=== PATIENT | male | born 1985 | race Caucasian/White ===

== ENCOUNTER 2021-02-22 19:46 | Emergency (ER) | payer SELFPAY ==
--- NOTE | ~2021-02-22 | CT_ITS ---
EXAMINATION: CTA chest PE protocol DATE: 02/22/2021 22:10 INDICATION: Chest pain. Elevated d-dimer. TECHNIQUE: Computed tomography (CT) pulmonary angiogram of the chest was performed with 100 mL Omnipa que-350 intravenous contrast. Additional 3D reconstructions utilizing coronal maximum intensity proje ction (MIP) were performed. Automated exposure control and iterative reconstruction technique were em ployed. The dose-length product was 787.12 mGy-cm. COMPARISON: None FINDINGS: Excellent contrast opacification of the pulmonary arteries. There is mild streak artifact from dense contrast in the superior vena cava and right atrium. Minimal scattered respiratory motion artifact wh ich does not significantly limit evaluation. There are multiple bilateral pulmonary nodules measuring up to 1.5 cm scattered throughout both lungs which demonstrate irregular margins with groundglass joseph los which would favor an infectious or inflammatory etiology over metastatic disease. No pulmonary ed jose, pleural effusion or pneumothorax. Heart size is normal. No pericardial effusion. There is likely reactive mild bilateral hilar and mediastinal lymphadenopathy which is likely reactive. Thoracic aor ta is normal caliber with no dissection. Small sliding-type hiatal hernia. Visualized upper abdomen i s otherwise unremarkable. Chronic appearing mild anterior wedging at T12. There are multiple Schmorl' s nodes in the mid to lower thoracic spine. IMPRESSION: 1. No pulmonary embolus. 2. Multiple bilateral scattered pulmonary nodules with random distribution and surrounding groundglas s opacity differential would include infectious/inflammatory etiologies including septic emboli and a typical pneumonias, is infiltrate pneumonia, hypersensitivity pneumonitis, Rl's granulomatosis a nd metastatic disease. 3. Mild mediastinal and bilateral hilar lymphadenopathy most likely reactive although differential al so includes metastatic disease. Reviewed, dictated and finalized at location A. IMPRESSION: 1. No pulmonary embolus. 2. Multiple bilateral scattered pulmonary nodules with random distribution and surrounding groundglass opacity differential would include infectious/inflammat ory etiologies including septic emboli and atypical pneumonias, is infiltrate p neumonia, hypersensitivity pneumonitis, Rl's granulomatosis and metastatic disease. 3. Mild mediastinal and bilateral hilar lymphadenopathy most likely reactive al though differential also includes metastatic disease.
[2021-02-22 20:19] VITALS: BP 141/79; PULSE 118; RESP 20; TEMP 37.8; O2SAT 99
--- NOTE | 2021-02-22 20:20 | ECG_ITS ---
Measurements Intervals [place] Rate: 98 P: 71 WV: 137 QRS: 67 QRSD: 104 T: 6 QT: 314 QTc: 402 Interpretive Statements SINUS RHYTHM INCOMPLETE RIGHT BUNDLE BRANCH BLOCK BORDERLINE ST-T WAVE ABNORMALITY- INFERIOR LEADS BORDERLINE ECG Electronically Signed On 02-22-2021 20:49:27 CDT by Wilder Lu D.O.
--- NOTE | 2021-02-22 20:22 | ED.GENADULT ---
HPI - General Adult General Chief complaint: Dizziness Stated complaint: body pain Source: patient Mode of arrival: ambulatory Limitations: no limitations History of Present Illness HPI narrative: Marko is a 35M with a PMH of psoriatic arthritis, obesity and tobacco use that presented to the ED with multiple concerns. He started having body aches 3 days ago. They then progress to chest pain, SOB, fevers, chills, cough and fatigue as well as lightheadedness. He has not had any COVID exposure as far as he knows, but he has not been infected or vaccinated. No syncope. Related Data Home Medications Medication Instructions Recorded Confirmed No Home Medications 02/22/21 02/22/21 Allergies Allergy/AdvReac Type Severity Reaction Status Date / Time No Known Allergies Allergy Verified 02/22/21 20:39 Review of Systems Constitutional: Constitutional: Reports chills, Reports fatigue and Reports fever(s) Eyes: Eyes: Reports no additional eye complaints ENT: Reports system reviewed and no additional complaints, except as documented Cardiovascular: Cardiovascular: Reports chest pain and Reports rapid heart rate Respiratory: Respiratory: Reports as per HPI Gastrointestinal: Gastrointestinal: Reports constipation Genitourinary: Genitourinary: Denies hematuria and Denies dysuria Musculoskeletal: Musculoskeletal: Reports as per HPI Integumentary/Breasts: Skin/Breast: Reports system reviewed and no additional complaints, except as docu Psychiatric: Psychiatric: Reports no additional psychiatric complaints Endocrine: Endocrine: Reports no additional endocrine complaints Hematologic/Lymphatic: Hematologic/Lymphatic: Reports no additional hematologic/lymphatic complaints Allergic/Immunologic: Allergic/Immunologic: Reports no additional allergic/immunologic complaints [facility] Social History Social History Gender identity (if verbalized by the patient): Male Exam Const: General: alert Orientation/consciousness: patient oriented x3 Limitations: No altered mental status Other: In mild distress HENMT: Head: normal to inspection Other: atrauamtic Eyes: Pupils: Equal, round and reactive pupils present Neck: Neck: normal visual inspection Chest: Chest palpation & inspection: normal inspection of the chest Resp: Effort & Inspection: labored and tachypneic Auscultation: clear to auscultation bilaterally Cardio: Rate: tachycardic Rhythm: regular rhythm Heart sounds: no murmurs GI: Inspection: non-distended GI Palp: Yes Soft to palpation, No Tenderness to palpation present (GI) and No Guarding due to palpation present (GI) Back/Spine/Pelvis: Back: no CVA tenderness Skin: General skin exam: normal color Other: Skin was warm and sweaty Neuro: General: patient oriented x3, moves all extremities, no meningeal signs, no focal motor deficits and CN's II-XI intact bilaterally Speech: normal speech Extrem: General: normal to inspection Psych: Appearance: grossly normal Mental Status: mental status grossly normal Thought content: Yes Normal thought content present Course Course Emergency Course: Given toradol and fluids for the pain/headache. EKG showed sinus tachycardia at 98, normal axis, RBBB but no ST elevation/depression Labs were largely unremarkable. EXAMINATION: CTA chest PE protocol DATE: 02/22/2021 22:10 INDICATION: Chest pain. Elevated d-dimer. TECHNIQUE: Computed tomography (CT) pulmonary angiogram of the chest was performed with 100 mL Omnipaque-350 intravenous contrast. Additional 3D reconstructions utilizing coronal maximum intensity projection (MIP) were performed. Automated exposure control and iterative reconstruction technique were employed. The dose-length product was 787.12 mGy-cm. COMPARISON: None FINDINGS: Excellent contrast opacification of the pulmonary arteries. There is mild streak artifact from dense contrast i
[2021-02-22] MEDS: KETOROLAC 30 MG/ML VIAL (*BKC) IV PUSH (20:39)
[2021-02-22] MEDS: SODIUM CHLORIDE 0.9% IV 1,000 ML 999 ML IV CONT ×2 (20:39→23:32)
[2021-02-22 20:44] LABS: Basophils Absolute Auto 0.05 K/mm3 (0.00-0.10); Basophils Percent Auto 0.8 % (0.0-1.0); Eosinophils Absolute Auto 0.14 K/mm3 (0.02-0.50); Eosinophils Percent Auto 2.2 % (1.0-6.0); Hemoglobin 15.7 g/dL (14.0-18.0); Immature Granulocyte Absolute 0.03 K/mm3 (0.00-0.00); Immature Granulocyte Percent A 0.5 % (0.0-0.0); Lymphocytes Percent Auto 27.7 % (18.0-42.0); Mean Corpuscular HGB Conc 33.4 g/dL (32.0-36.0); Mean Corpuscular Hemoglobin 28.6 pg (27.0-31.0); Mean Corpuscular Volume 85.6 fL (78.0-102.0); Mean Platelet Volume 9.5 fl (8.7-11.0); Monocytes Absolute Auto 0.68 K/mm3 (0.10-0.90); Monocytes Percent Auto 10.5 % (2.0-11.0); Neutrophils Absolute Auto 3.8 K/mm3 (1.7-7.2); Neutrophils Percent Auto 58.3 % (50.0-70.0); Platelet Count Result 161 K/mm3 (150-420); Red Blood Count 5.49 M/mm3 (4.70-6.10); Red Cell Distribution Width 12.4 % (11.6-14.4); White Blood Count 6.5 K/mm3 (4.8-10.8)
[2021-02-22 20:58] LABS: Prothrombin Time 10.8 Seconds (9.50-12.10)
[2021-02-22 21:01] LABS: D Dimer 0.92 mg/L (0.19-0.50)
[2021-02-22 21:03] LABS: Influenza Control Valid (Valid)
[2021-02-22 21:10] LABS: Alanine Aminotransferase 28 U/L (16-63); Albumin Level 3.4 g/dL (3.4-5.0); Alkaline Phosphatase 72 U/L (46-116); Anion Gap 8 mmol/L (8-16); Aspartate Amino Transferase 15 U/L (15-37); Bilirubin,Total 0.4 mg/dL (0.00-1.00); Blood Urea Nitrogen 7 mg/dL (7-18); Calcium 8.8 mg/dL (8.5-10.1); Carbon Dioxide 29 mmol/L (21-32); Chloride 101 mmol/L (98-108); Creatine Kinase 65 U/L (39-308); Estimated CRCL calculation 92 ml/min; Estimated Glomerular Filt Rate > 60; Glucose 114 mg/dL (70-99); Osmolality Calculated 285 mOsm/kg (285-295); Sodium 138 mmol/L (136-145); Total Protein 7.5 g/dL (6.4-8.2)
[2021-02-22 21:12] LABS: Thyroid Stimulating Hormone 0.94 uIU/mL (0.36-3.74); Troponin I 5.7 ng/L (0.00-60.4)
[2021-02-22 21:32] LABS: SARS-CoV-2 RNA PCR Negative (Negative)
[2021-02-22 22:30] VITALS: BP 96/55; PULSE 84; RESP 20; O2SAT 98
[2021-02-22 23:10] VITALS: BP 103/69; PULSE 80; RESP 20; O2SAT 97
[2021-02-22 23:33] VITALS: BP 117/78; PULSE 91; RESP 20; O2SAT 97
[2021-02-23 00:33] VITALS: BP 122/78; PULSE 93; RESP 20; O2SAT 100
== END 2021-02-23 00:39 | disposition short-term general hospital (02) ==
LOC: CHSED 19:48
PROVIDERS: Emergency Provider Family Medicine
DX: R91.8 Other nonspecific abnormal finding of lung field (principal); J18.9 Pneumonia, unspecified organism; Z20.822 Contact with and (suspected) exposure to COVID-19
CPT/HCPCS: 36415; 71275; 80053; 82550; 84443; 84484; 85025; 85380; 85610; 86140; 87040; 87804; 93005; 96361; 96365; 96368; 96375; 99285; C9803; J0456; J0696; J1885; J7030; Q9967; U0003; U0005